=== PATIENT | female | born 1995 | race Caucasian/White ===

== ENCOUNTER 2017-02-21 20:18 | Emergency (ER) | payer OTHER ==
[~2017-02-21 20:18] MED LIST: COLACE100 MG PO; LORTAB 7.5-3251 EACH PO
== END 2017-02-21 22:27 | disposition home or self-care (01) ==
LOC: ER1 20:18
DX: R07.89 Other chest pain (principal); R05 Cough; Z90.49 Acquired absence of other specified parts of digestive tract
CPT/HCPCS: 36415; 71101; 99285

== ENCOUNTER → 2021-01-17 | Outpatient (CLI) | payer OTHER ==
[~2021-01-17] MED LIST changes: +AMOXICILLIN500 M1 PO; +ZOFRAN4 MG PO
[2021-01-17 19:25] LABS: HEMOGLOBIN 13.1 gm/dl (12.3-15.3); RED BLOOD COUNT 4.36 M/UL (4.00-5.10); WHITE BLOOD COUNT 8.8 K/UL (4.5-11.0)
[2021-01-17 19:48] LABS: BUN/CREATININE RATIO 15 (0-10)
[2021-01-19 08:14] LABS: THYROXINE (T4) 7.3 ug/dL (4.5-12.0)
[2021-01-19 09:14] LABS: VITAMIN D, 25-HYDROXY 26.3 ng/mL (30.0-100.0)
== END ==
LOC: LAB 18:15
DX: F43.23 Adjustment disorder with mixed anxiety and depressed mood (principal)
CPT/HCPCS: 80053; 80061; 82607; 82746; 83036; 83735; 84207; 84436; 84443; 84480; 85025; 85027

== ENCOUNTER 2021-11-01 16:48 | Inpatient (IN) | payer OTHER ==
[~2021-11-01] VITALS: Ht 172.7 cm; Wt 87.5 kg
[2021-11-01 18:22] LABS: HEMOGLOBIN 11.2 gm/dl (12.3-15.3); RED BLOOD COUNT 3.8 M/UL (4.00-5.10); WHITE BLOOD COUNT 10.3 K/UL (4.5-11.0)
[2021-11-02] MEDS ORDERED: IBUPROFEN800 MG PO (13:09)
[2021-11-02] MEDS ORDERED: COLACE100 MG PO (13:09)
[2021-11-03 04:13] LABS: HEMOGLOBIN 11.5 gm/dl (12.3-15.3)
== END 2021-11-03 16:22 | disposition home or self-care (01) | DRG 807 ==
LOC: GENOP 16:48 → OB 17:01
PROVIDERS: ADMIT Obstetrics & Gynecology
PROC: 4A1HXCZ Monitoring of Products of Conception, Cardiac Rate, External Approach (ICD-10-PCS; 2021-11-01)
PROC: 10E0XZZ Delivery of Products of Conception, External Approach (ICD-10-PCS; principal; 2021-11-02)
PROC: 10907ZC Drainage of Amniotic Fluid, Therapeutic from Products of Conception, Via Natural or Artificial Opening (ICD-10-PCS; 2021-11-02)
PROC: 3E033VJ Introduction of Other Hormone into Peripheral Vein, Percutaneous Approach (ICD-10-PCS; 2021-11-02)
PROC: 0U7C7ZZ Dilation of Cervix, Via Natural or Artificial Opening (ICD-10-PCS; 2021-11-02)
DX: O99.824 Streptococcus B carrier state complicating childbirth (principal); Z37.0 Single live birth; Z3A.39 39 weeks gestation of pregnancy; Z90.49 Acquired absence of other specified parts of digestive tract; Z20.822 Contact with and (suspected) exposure to COVID-19
CPT/HCPCS: 36415; 81001; 85014; 85018; 85025; J2210; J2405; J2590; J7120